=== PATIENT | male | born 1960 | race Caucasian/White ===

== ENCOUNTER 2020-02-10 06:35 | Outpatient (CLI) | payer OTHER, SELFPAY ==
--- NOTE | 2020-02-10 07:25 | ECG_ITS ---
[facility] Test Date: 2020-02-10 Pat Name: Stef Vizcarra Department: Room: Gender: Male Tax Compliance Manager: Natasha Terrazas : 1960 Requested By: Adolfo Topete Order Number: [id number] Aarti MD: Adolfo Topete M.D. Interpretive Statements NAME OF STUDY: EXERCISE SESTAMIBI STRESS TEST INDICATION: [Bradycardia, ] Exercise data: The patient was exercised by Jarek protocol. Baseline heart rate was 68 bpm. Baseline blood pressure was 129/79 mmHg. Maximum predicted heart rate was 163 bpm. Maximum heart rate achieved was 139 bpm which was 85% of maximum predicted heart rate. Maximum blood pressure was 208/53 mmHg. Total exercise time was 10 minutes 30 seconds. Maximum METS achieved was 12.3. Maximum VO2 was 43.1. The reason for ending the test was completion of protocol and achieving target heart rate. Patient had intraprocedural shortness of breath that resolved by discharge. Electrocardiogram: Baseline: Showed normal sinus rhythm, normal axis, no significant ST-T wave changes. Exercise: At peak exercise, no significant ST-T wave changes were noted, no suggestion of ischemia. Recovery: During recovery. Heart rate dropped appropriately. No significant ST-T wave changes in recovery suggestive of ischemia noted. Conclusion: 1. Exercise capacity is excellent 2. Heart rate response was appropriate. 3. Blood pressure response was appropriate. 4. Symptoms not suggestive of ischemia. 5. Electrocardiogram portion of stress test was not suggestive of ischemia. 6. Nuclear scan will be documented separately. Electronically Signed On 02-20-2020 10:01:28 MATCHER OPERATOR by Adolfo Topete M.D. [id number]
--- NOTE | 2020-02-10 07:26 | NMCV_ITS ---
NM ryan perf SPECT r/s* [id number] Stef Vizcarra Age: 59 Gender: M : 1960 Exam Date: 02/10/2020 08:06 Ordering Phys: Adolfo Topete M.D ([email or web address]) Technologist: TRICE Covarrubias Exam Location: [facility] Indications: CHEST PAIN STRESS TEST Please see separate stress test report in [facility] for full findings IMAGE PROTOCOL Rest/Stress 1 Exercise Day Radiopharmaceutical Dose (mCi) Administration Site Administered by Rest: Tc-99m 10.8 IV TRICE Cohen Sestamibi Stress:Tc-99m 32.8 IV TRICE Cohen Sestamibi Rest: 10-Feb-2020 60 Discovery 630 Stress: 10-Feb-2020 15 Discovery 630 Radiopharmaceutical was injected at 85 % maximum heart rate. Images obtained in supine and prone position. SPECT RESULTS Technical Quality: Excellent Raw Data Analysis: Normal Image Corrections: No attenuation or motion correction applied Summed Stress Score: 2 Summed Rest Score: 1 Summed Difference Score: 2 PERFUSION FINDINGS There is a small area of decreased tracer intake in anterior wall. There is no significant reversibility. Small area of partially reversible perfusion defect is noted in apical lateral wall. FUNCTIONAL RESULTS (calculated via Gated SPECT) Stress Image LV EF (%): 62 Stress EDV (mL):153 TID: 0.82 Stress ESV (mL):58 FUNCTIONAL FINDINGS: There is normal left ventricular systolic function. IMPRESSIONS 1. There is a small area of mostly fixed anterior wall defect. This could represent artifact or prior infarct. 2. There is a small area of partially reversible apical lateral wall defect. This could represent ischemia. Clinical correlation is needed. 3. Normal LV systolic function with EF of 62%. Adolfo Topete MD (Electronically Signed) Final Date: 13 February 2020 19:16 S
[2020-02-10 07:28] VITALS: BMI 35.2
[2020-02-10 09:25] VITALS: BP 167/67; PULSE 80
== END 2020-02-10 06:36 | disposition home or self-care (01) ==
LOC: RAD 06:37 → CDL 08:58
PROVIDERS: Visit Provider Internal Medicine
DX: R07.9 Chest pain, unspecified (principal)
CPT/HCPCS: 78452; 93017; A9500

== ENCOUNTER → 2020-02-27 14:08 | Outpatient (BNVA) | payer OTHER, SELFPAY | PROVIDERS: Visit Provider Internal Medicine | DX: Z11.59 Encounter for screening for other viral diseases (principal); R07.9 Chest pain, unspecified | CPT/HCPCS: 36415; 80048; 85025; 85610; 87635 ==

== ENCOUNTER → 2020-03-14 09:36 | Outpatient (BNVA) | payer OTHER, SELFPAY | PROVIDERS: Visit Provider Internal Medicine | DX: R07.9 Chest pain, unspecified (principal) | CPT/HCPCS: 87635 ==

== ENCOUNTER → 2020-03-20 09:05 | Outpatient (BNVA) | payer OTHER, SELFPAY | PROVIDERS: Visit Provider Internal Medicine | DX: Z20.828 Contact with and (suspected) exposure to other viral communicable diseases (principal); Z01.812 Encounter for preprocedural laboratory examination | CPT/HCPCS: 87635 ==

== ENCOUNTER 2020-03-23 10:14 | Observation (INO) | payer OTHER, SELFPAY ==
[2020-03-23] VITALS (36 sets, daily range): BP systolic 102–174; BP diastolic 58–109; PULSE 45–66; RESP 10–24; TEMP 36.2–37.2; O2SAT 96–98; BMI 35.2
[2020-03-23 08:23] LABS: SARS Covid-2 Antigen Negative (Negative)
--- NOTE | 2020-03-23 08:27 | XACV_ITS ---
Ht: 183 cm Wt: 124 kg BSA: 2.56 m2 Gender: Male : 1960 Any Known Allergies: Other Exam Priority: Routine Procedure(s): Procedure Description: Diagnostic procedure Procedure Description: PCI procedure Procedure Description: Drug Eluting Coronary Stent Procedure Description: PTCA Procedure Description: Coronary Angiography Procedure Description: Pressure Wire Diagnostic Cath Status: Elective Diagnostic Findings * LM has luminal irregularities. No significant stenosis.. * CX arises from left main artery. It gives rise to a large OM branch. Proximal left circumflex has 10 to 20% stenosis.. * RCA has no significant stenosis. * LAD arises from left main artery. It gives rise to a medium sized diagonal branch. At bifurcation of LAD and diagonal there is 60 to 70% stenosis in mid LAD. * M * id Left Anterior Descending Coronary Artery: Moderate 70% stenosis, CAROLA: 3 flow. FFR was performed for mid LAD which was significant at 0.79.. * Coronary angiography shows right dominance. PCI Status: Elective PCI Indication: Other Interventional Findings * After diagnostic angiography, we decided to perform FFR of mid LAD. IV heparin was administered to maintain ACT above 250 seconds. We engaged left main artery using XB 3.0 guide catheter. After zeroing and equalizing, pressure wire was used to cross the mid LAD stenosis and was placed in distal LAD. IV adenosine was used to induce maximal hyperemia. FFR value of 0.79 was obtained. At this time we decided to proceed with percutaneous coronary intervention. Over the same pressure wire, we put a 2.5 x 12 mm resolute [place] drug-eluting stent in mid LAD. This was postdilated using a 3.0 x 6 mm NC balloon. At this time guidewire was removed and final angiogram was performed. This showed excellent stent expansion, flow and no residual stenosis. The medium sized sidebranch that is the diagonal artery, had ostial pinching however there was brisk CAROLA-3 flow and no compromise of the vessel. Guide catheter was removed. Patient left the Early Childhood Educator Aide in stable condition.. * Mid Left Anterior Descending Coronary Artery: 70% stenosis treated with MDT R ASHOK 2.5X12 HUMA and MDT NC EUPHORA RX [id number] BALLOON. 0% residual stenosis, CAROLA: 3 flow. Conclusions 1. Severe mid LAD stenosis confirmed by FFR value of 0.79.. 2. Mid Left Anterior Descending Coronary Artery was treated with Drug Eluting Stent and Balloon. Recommendations * Admit to CSU. * Aspirin and Plavix for at least 1 year. * High * intensity statin therapy. * Aggressive risk factor control with blood pressure and diabetes control. Interventional RX Recommendation: PCI w/o planned CABG Diagnostic RX Recommendation: PCI w/o planned CABG Anticoagulation: Heparin Pressures Phase:Rest AO : 124 / 80 ( 99 ) @ 2:58:00 AM 122 / 113 ( 99 ) @ 2:58:00 AM 122 / 81 ( 100 ) @ 3:06:00 AM 112 / 63 ( 82 ) @ 3:39:00 AM 92 / 91 ( 75 ) @ 3:41:00 AM Clinical Evaluation EBL: 5mL-10mL Procedural Details Procedure Consent Obtained. Pre-Procedure Time Out. Identified patient by full name and date of as verbalized by the patient/guarantor. Does the consent match the physician's order: Yes. Accurate & Complete Informed Consent: Yes. Inpatient/Outpatient History & Physical on Chart: Yes. If H&P is completed, is and addenduem needed: N/A; If yes, is the addendum complete: N/A. Visualize and Verify Site with Patient/Guarantor: N/A. Relevant Radiology Images available: Yes. Pre-op teaching completed and patient verbalized understanding. The risks, benefits, and alternatives of sedation and/or procedure were discussed by physician. The patient agrees to continue. Procedure started. Correct patient, site and procedure confirmed by cath team. PERRLA. Strong, equal hand test developer bilaterally. Lungs clear x 5 lobes. IV Site on Arrival: 20 gauge in the left anticubital. IV Fluids: 0.9% NaCl at KVO. 0 mL infused prior to cardiac cath lab technologist. Oxygen started at 2liters/min via nasal canula. right groin was prepped with chloroprep then draped in the usual sterile fashion. right radial was prepped with chloroprep then draped in the usual sterile fashion. Physician notified. Baseline sample Acquired. HR: 52 BPM. Physician arrived. Equipment: 6F - Radial. Cardiac Cath Pack. ACAnesco Manifold Kit Model BT 2000. Heparinized Saline (2 units/mL), 1000 mL bag. Physician scrubbed in. Immediate Pre-Procedure Time Out. Correct Patient: Yes; Correct Procedure: Yes; Correct Site: Yes; Correct Patient Position: Yes; Correct Supplies: Yes; Dried Flammable Prep: Yes; Blood Products Available: No;. Lidocaine 1% infiltrated to the right radial. Arterial access obtained. A 5 afghan TIG catheter in over wire. Multiple views taken of left coronary artery. Patient's family updated. Catheter redirected to the RCA. Multiple views taken of right coronary artery. Catheter out. 6 afghan XB 3.5 guide catheter was inserted over the wire. Guide catheter out. 6 afghan XB 3 guide catheter was inserted over the wire. FFR guidewire was advanced through the guide catheter to lesion in the mid LAD. An FFR value of 0.80 was obtained for a lesion located at Mid LAD. Inflation Number : 1 A MDT R ASHOK 2.5X12 HUMA -Lot Number# [id number] exp 12-26-2021 was prepped and advanced across the Mid LAD. The stent was deployed at 14 RONALDO for 0:32 seconds. Stent balloon out over wire. Inflation number : 2 A MDT NC EUPHORA RX [id number] BALLOON was prepped and advanced across the Mid LAD , then inflated to 12 RONALDO for 0:38 seconds. Inflation number: 3 The MDT NC EUPHORA RX [id number] BALLOON was reinflated across the Mid LAD, to 12 RONALDO for 0:26 seconds. Inflation number: 4 The MDT NC EUPHORA RX [id number] BALLOON was reinflated across the Mid LAD, to 12 RONALDO for 0:09 seconds. Balloon out. Balloon out. Results checked. Wire out. Results checked. Guide catheter out. A TR Band was successful obtaining hemostatsis at the Right Radial artery insertion site. TR band placed. Hemostasis obtained. Post Procedure: Pulses reassessed and unchanged. PERRLA. Strong, equal hand test developer bilaterally. No VTE prophylaxis required. Medication's Wasted: Other = versed 1 mg. Medication's Wasted: Nitro = 49.4 mg. Medication's Wasted: Lidocaine 1% = 18 mL. Medication's Wasted: Heparin = 2000 units. Medication's Wasted: Other = adenosine 56 mg. Total IV fluids: 100 mL. Fluoro: 14:02. Contrast type used: Omnipaque 300 mgI/mL, 500 mL bottle. [id number]. PCI Indication: unstable angina. Post-op diagnosis: severe mid LAD stenosis. Complications: none. Estimated blood loss: 5mL-10mL. Procedure completed. Patient transferred by wheelchair to 1st floor. [facility] Clinical Fraility Score: 3: Managing Well. Early Childhood Educator Aide Indications: Worsening Angina. Chest Pain Symptom Assessment: Typical Angina Symptoms. Cardiovascular Instability: No. Vital chart was stopped. Access Site Site: Right Radial artery Sheath Size: 6 Fr Hemostasis Method: TR Band Hemostasis Success: Successful Procedure Medications Start: 8:38 AM Stop: 8:38 AM Medication: Aspirin Amount: 325 mg Route: P.O. Start: 8:39 AM Stop: 8:39 AM Medication: Benadryl Amount: 50 mg Route: I.V. Start: 8:42 AM Stop: 8:42 AM Medication: Versed Amount: 1 mg Route: I.V. Start: 8:42 AM Stop: 8:42 AM Medication: Fentanyl Amount: 50 mcg Route: I.V. Start: 8:50 AM Stop: 8:50 AM Medication: Nitrogylcerin Amount: 200 mcg Route: I.A. Start: 8:54 AM Stop: 8:54 AM Medication: Heparin Amount: 5000 units Route: I.V. Start: 9:02 AM Stop: 9:02 AM Medication: Nitrogylcerin Amount: 200 mcg Route: I.C. Start: 9:13 AM Stop: 9:13 AM Medication: Heparin Amount: 3000 units Route: I.V. Start: 9:14 AM Stop: 9:14 AM Medication: Versed Amount: 1 mg Route: I.V. Start: 9:44 AM Stop: 9:44 AM Medication: Plavix Amount: 600 mg Route: P.O. Start: 9:49 AM Stop: 9:49 AM Medication: Heparin Amount: 1000 units Route: I.V. I, the attending physician, have reviewed and verified all procedure medications. Yes, all medications given per verbal order History/Risk Factors Hypertension: Yes Dyslipidemia: Yes Tobacco Use: Current/Recent(w/in 1 year) Report Signatures Finalized by Adolfo Topete MD on 03/23/2020 12:13 PM
--- NOTE | 2020-03-23 08:32 | P.HP_ITS ---
Providers/Chief Complaint Admitting Physician: Adolfo Topete MD Chief Complaint: cardiac cath History of Present Illness 59-year-old man with past medical history of hypertension, hyperlipidemia, diabetes has been referred from [place] for evaluation of bradycardia and chest pain. Chest pain symptoms are typical. He gets exertional chest pain. It has been happening for the last 3 to 4 months now. Nuclear stress test was performed that showed mostly fixed defect of anterior wall and partially reversible defect of apical lateral wall. Given patient's persistent typical symptoms and abnormal stress test, plan is for coronary angiography with possible coronary intervention. Review of Systems Narrative: CONSTITUTIONAL: No fever chills weight loss or gain or night sweats. [] HEENT: Normocephalic, atraumatic.[] RESPIRATORY: No cough, sputum, hemoptysis or wheezing.[] CARDIOVASCULAR: No shortness of breath, chest pain, PND, orthopnea, lower extremity edema, presyncope or syncope. [] GI: no nausea vomiting diarrhea. [] SOLAR SALES REP: No numbness, tingling, weakness or loss of function in any part of the body. [] MUSCULOSKELETAL: No knee or joint pain or rashes. [] Medications/Allergies Home Medications Medication Instructions Recorded Confirmed Last Taken Type amlodipine 2.5 mg tablet 2.5 mg PO DAILY 01/24/20 03/23/20 03/21/20 08:00 History atorvastatin 80 mg tablet 80 mg PO DAILY 01/24/20 03/23/20 03/21/20 17:00 History cetirizine 10 mg capsule 10 mg PO DAILY 01/24/20 03/23/20 03/21/20 08:00 History cyanocobalamin (vitamin B-12) 1,000 mcg PO DAILY 01/24/20 03/23/20 03/22/20 08:00 History 1,000 mcg capsule lisinopril 20 1 tab PO DAILY 01/24/20 03/23/20 03/21/20 08:00 History mg-hydrochlorothiazide 12.5 mg tablet multivitamin 1 tab PO DAILY 01/24/20 03/23/20 03/21/20 08:00 History metformin 500 mg PO BID 03/23/20 03/23/20 03/21/20 17:00 History Allergies Allergy/AdvReac Type Severity Reaction Status Date / Time Penicillins Allergy Severe rash Verified 02/29/20 10:27 lorazepam [From Ativan] AdvReac luizuinatio Verified 02/29/20 10:27 ns PFSH Acute PFSH: Medical History Chest pain Diabetes Hyperlipidemia Hypertension Family History Father CAD (coronary artery disease) Stroke Hypertension Mother CAD (coronary artery disease) Hypertension Denies family history of Diabetes Social History Smoking and tobacco status: smoker, details unknown cigarettes Packs smoked per day: 0.5 Years cigarettes smoked: 0.3 Second hand smoke exposure: No Alcohol intake: former Year of sobriety/quit date alcohol: 2007 Household members: spouse Housing: House service: Yes Vitals/I&O/Wt Last Vital Signs Temp 97.2 F L 03/23/20 07:14 Pulse 59 L 03/23/20 07:14 Resp 16 03/23/20 07:14 BP 147/82 03/23/20 07:14 Pulse Ox 98 03/23/20 07:14 Weight last 48 hrs Weight 260 lb Physical Exam Narrative: EXAM NARRATIVE: GENERAL: Patient is alert, awake and oriented x3. [] NECK: No jugular vein distension. [] HEENT: No cyanosis. No icterus. No pallor. [] HEART: Regular S1 and S2. No murmur, rub or gallop. [] LUNGS: Clear to auscultate bilaterally. [] ABDOMEN: Soft, nontender and nondistended. Positive bowel sounds. No guarding, rebound or tenderness. [] CENTRAL NERVOUS SYSTEM: Grossly nonfocal. [] EXTREMITIES: Lower extremities with no edema bilaterally. Pulses palpable in the lower extremities, both dorsalis pedis and posterior tibial. [] A&P Assessment and plan (1) Chest pain: Status: Acute (2) Hypertension: Status: Acute (3) Hyperlipidemia: Status: Acute (4) Diabetes: Status: Acute Patient has been having typical chest pain symptoms. Given his symptoms, significant coronary artery disease risk factors and abnormal stress test we are going to perform left heart cath with possible percutaneous coronary intervention. Risks and benefits of the procedure have been explained to the patient. Risks including bleeding, infection, kidney function worsening, abnormal heart rhythm, heart attack, stroke or have been described. Patient understands the risks and benefits and wants to proceed with the procedure. Attestations Medical Necessity Statement*: Care not expected to cross 2 midnights. Coding Level of Care Code Acute Automotive Tire Testing Supervisor for [facility] Fwd Diagnoses Chest pain R07.9 Hypertension I10 Hyperlipidemia E78.5 Diabetes E11.9
[2020-03-23 11:24] LABS: Glucose Point of Care 87 mg/dL (70-110)
[2020-03-23] MEDS: acetaminophen 325 mg Tablet 650 MG PO (17:10)
[2020-03-23] MEDS: sodium chloride 0.9% 1,000 ML 100 ML IV (19:32)
[2020-03-24] VITALS (8 sets, daily range): BP systolic 120–142; BP diastolic 69–87; PULSE 54–65; RESP 14–25; TEMP 36.4–36.8; O2SAT 96–98
--- NOTE | 2020-03-24 03:47 | PC.NURSE ---
Patient up to bathroom. Had an uneventful night. Dressing to right wrist remains c,d,i. No s/s of bleeding or hematoma formation observed. Patient requested to have IV fluids disconnected. Patient stated, I am going home today. Patient denies pain to LHC access site. Denies other needs or discomforts. No distress observed.
[2020-03-24] MEDS: aspirin 81 mg EC Tablet PO (08:15)
[2020-03-24] MEDS: clopidogrel 75 mg Tablet PO (08:15)
[2020-03-24] MEDS: lisinopril 20 mg Tablet PO (08:15)
[2020-03-24] MEDS: cyanocobalamin 1,000 mcg Tablet 1000 MCG PO (08:15)
[2020-03-24] MEDS: atorvastatin 40 mg Tablet 80 MG PO (08:16)
[2020-03-24] MEDS: cetirizine 10 mg Tablet PO (08:17)
[2020-03-24] MEDS: amlodipine 5 mg Tablet 2.5 MG PO (08:17)
[2020-03-24] MEDS: acetaminophen 325 mg Tablet 650 MG PO (11:17)
[2020-03-24] MEDS: pantoprazole DR 40 mg Tablet PO (11:45)
[2020-03-24] MEDS: ondansetron 2 mg/ML SDV 2 mL 4 MG IVP (11:45)
--- NOTE | 2020-03-24 11:49 | PM.PN ---
Subjective Subjective: Interval history: Patient is complaining of nausea and chest pressure along with headache. His vitals are stable he appeared to be little bit nervous. Vitals/I&O/Wt Last Vital Signs Temp 97.9 F 03/24/20 08:26 Pulse 63 03/24/20 11:24 Resp 14 03/24/20 11:24 BP 125/74 03/24/20 11:24 Pulse Ox 96 03/24/20 08:26 03/23/20 03/24/20 03/24/20 22:59 06:59 14:59 Intake Total 240 / 480 825 / 1305 222 / 222 Balance 240 / 480 825 / 1305 222 / 222 Weight last 48 hrs Weight 260 lb Physical Exam Narrative: EXAM NARRATIVE: GENERAL: Patient is alert, awake and oriented x3. NECK: No jugular vein distension. HEENT: No cyanosis. No icterus. No pallor. HEART: Regular S1 and S2. No murmur, rub or gallop. LUNGS: Clear to auscultate bilaterally. ABDOMEN: Soft, nontender and nondistended. Positive bowel sounds. No guarding, rebound or tenderness. CENTRAL NERVOUS SYSTEM: Grossly nonfocal. EXTREMITIES: Lower extremities without edema bilaterally. Pulses palpable in the lower extremities, both dorsalis pedis and posterior tibial. A&P Assessment and plan (1) Chest pain: Status: Acute (2) Hypertension: Status: Acute (3) Hyperlipidemia: Status: Acute (4) Diabetes: Status: Acute For worsening of angina patient does not left heart cath noted to have mid significant LAD disease by FFR treated with single drug-eluting stent. No overnight complication except this morning patient started feeling chest pressure and nausea. He is also anxious. I will watch him for few more hours and perhaps may be 1 more day post PCI. I will add Protonix to the regimen. Continue aspirin statin Plavix lisinopril. Attestations Medical Necessity Statement*: Patient require continuation hospitalization for chest pressure nausea post PCI. Coding Level of Care Code Established Pt Acute Digital Experience Manager for [facility] Fwd Patient Type Established History Expanded Problem Focused Exam Expanded Problem Focused Medical Decision Making Moderate Complexity Diagnoses Chest pain R07.9 Hypertension I10 Hyperlipidemia E78.5 Diabetes E11.9
[2020-03-24 11:52] LABS: Glucose Point of Care 88 mg/dL (70-110)
--- NOTE | 2020-03-24 13:32 | PC.NURSE ---
Pt ambulating down hallways. Pt has been up and walking around the hallways. Pt denies any chest pain or chest discomfort. Pt stated his nausea is gone after i administer zofran as ordered. He denies any more headache. He said, I am ready to go home.
--- NOTE | 2020-03-24 13:35 | ECG_ITS ---
[facility] Test Date: 2020-03-24 Pat Name: Stef Vizcarra Department: Room: 112 Gender: Male Rail Technician: : 1960 Requested By: Valeri Milan Order Number: [id number] Reading MD: VALERI MILAN Measurements Intervals [place] Rate: 64 P: 7 NE: 186 QRS: 32 QRSD: 98 T: 18 QT: 386 QTc: 399 Interpretive Statements SINUS RHYTHM No previous ECG available for comparison Electronically Signed On 03-24-2020 17:27:54 NAIL TECH by VALERI MILAN [id number]
--- NOTE | 2020-03-24 14:32 | PC.NURSE ---
Notified Dr Milan Talked to Dr. Milan via phone regarding pt's EKG and pt denies any more chest pain or discomfort after ambulation. VS WNL.
--- NOTE | 2020-03-24 14:33 | PC.NURSE ---
Pt preferred pharmacy for now is [facility] Noted pt is a [facility]. He said it takes about 10 days before his Rx are mailed to him. [facility]
--- NOTE | 2020-03-24 14:48 | PM.DCS ---
Discharge Providers Date of Admission: 03/23/20 10:14 Date of Discharge: March 24, 2020 Attending Provider at Admission: Adolfo Topete M.D Attending Provider at Discharge: Adolfo Topete M.D Diagnoses at Discharge Discharge Diagnosis (1) Chest pain: Status: Acute (2) Hypertension: Status: Acute (3) Hyperlipidemia: Status: Acute (4) Diabetes: Status: Acute Reason for Visit Reason for Visit: cardiac cath Hospital Course Hospital Course 59-year-old male past medical history significant for diabetes mellitus hypertension hyperlipidemia underwent left heart cath for worsening of chest pain angina by Dr. Rodriguez. He was noted to have mid LAD stenosis, FFR was significant for which drug-eluting stent postdilated with noncompliant balloon was placed. There was no overnight event however this morning patient was feeling some chest pressure with nausea Zofran was given medicine was optimized he is walking around without any difficulty he feels much better twelve-lead EKG did not show any significant ischemia. Patient is being discharged home with advised to continue clopidogrel aspirin statin on daily basis. Patient has been advised in case of chest pain not relieved with 3 nitroglycerin he should go to ER. He is going to follow-up with Dr. Rodriguez and Tanisha Rogers in cardiology clinic. Physical Exam Narrative: EXAM NARRATIVE: GENERAL: Patient is alert, awake and oriented x3. NECK: No jugular vein distension. HEENT: No cyanosis. No icterus. No pallor. HEART: Regular S1 and S2. No murmur, rub or gallop. LUNGS: Clear to auscultate bilaterally. ABDOMEN: Soft, nontender and nondistended. Positive bowel sounds. No guarding, rebound or tenderness. CENTRAL NERVOUS SYSTEM: Grossly nonfocal. EXTREMITIES: Lower extremities without edema bilaterally. Pulses palpable in the lower extremities, both dorsalis pedis and posterior tibial. 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 Routin e Exams 03/23/20 08:27 Completed Labs from last 24 hours 03/24/20 11:41 POC Glucose 88 Vitals: Last Vital Signs Temp 97.9 F 03/24/20 08:26 Pulse 63 03/24/20 11:24 Resp 14 03/24/20 11:24 BP 125/74 03/24/20 11:24 Pulse Ox 96 03/24/20 08:26 Discharge Plan Discharge Patient Disposition: Home Condition: Stable Prescriptions: New pantoprazole 40 mg Tablet,Delayed Release (Dr/Ec) 40 mg PO DAILY Qty: 30 RF: 1 aspirin 81 mg Tablet,Delayed Release (Dr/Ec) 81 mg PO DAILY Qty: 90 RF: 4 clopidogrel 75 mg Tablet 75 mg PO DAILY Qty: 90 RF: 4 Continued lisinopril-hydrochlorothiazide 20-12.5 mg tablet 1 tab PO DAILY RF: 0 cetirizine 10 mg capsule 10 mg PO DAILY RF: 0 cyanocobalamin (vitamin B-12) 1,000 mcg capsule 1,000 mcg PO DAILY RF: 0 atorvastatin 80 mg tablet 80 mg PO DAILY RF: 0 amlodipine 2.5 mg tablet 2.5 mg PO DAILY RF: 0 multivitamin [Multiple Vitamins] Tablet 1 tab PO DAILY RF: 0 metformin 500 mg Tablet 500 mg PO BID RF: 0 Discharge Orders: Discharge Order (Routine); Ordered 03/24/20 Ordered By: Valeri Milan Discharge Diet: Diabetic Patient Instructions: Left Heart Catheterization (DC), Coronary Angioplasty (DC), Post Angiogram Home Care Instructions Activity Restrictions/Additional Instructions: Follow-up with Dr. Michael lovelace in 1 month. Tanisha Rogers follow-up 7 days Discharge Attestations Time Spent in Discharge Care*: greater than 30 min Specific Discharge Activities: educating patient Quality Metrics Clinical Quality Measures During this hospital stay, did patient experience: None Coding Level of Care Code New Pt Acute Band Saw Runner for [facility] Fwd Patient Type New History Detailed Exam Detailed Medical Decision Making Moderate Complexity Diagnoses Chest pain R07.9 Hypertension I10 Hyperlipidemia E78.5 Diabetes E11.9
--- NOTE | 2020-03-24 15:01 | PC.CHAP ---
Pastoral Care Encounter/Spiritual Assessment Type of Contact [] Declined business case analyst visit [] Patient/Family/Request visit [] Outpatient visit [] Follow-up visit [] Physician referral [] Code/Alert [x] Routine visit [] Staff referral [] Actively dying [] Patient sleeping [] Family support [] [] Out of room [] Palliative care [] [] Receiving care in room [] Pre-surgical visit [] Trauma [] Long length of stay [] ICU visit [] Other: Relational/Emotional Strength [] Patient feels connected with others/family/visitors/staff [] Distress [] Loneliness/isolation [] Abandonment Spirituality of Patient [] Person of Kika [] Attends Baptism of their Kika [] Believes in Prayer [] Reads Bible or Orthodoxy materials [] There are Spiritual issues to be addressed [employer] Chauf[employer]ur Interventions [] Prayer [] Active listening [] Non-anxious presence [] Spiritual/emotional support [] Crisis/trauma care [] Spiritual counseling [] Bereavement support [] Provided bereavement packet [] Provided Bible/devotional materials [] Provided toy/stuffed animal, coloring book to patient or family member [] Provided Communion [] Anointing/[facility] [] Salvation [] Completed spiritual assessment [] Other: Impact on Illness or Injury [] Angry [] Fearful [] Anxious [] Often cries [] Exhaustion [] Unable to work [] Unable to attend gnosticist [] Unable to walk/stand [] Unable to read [] Unable to drive [] Unable to eat/drink [] Unable to sleep [] Unable to be with family [] Patient intubated [] Other: Summary [employer] of a [employer] lutheran, had a long fruitful convo Time spent with patient
--- NOTE | 2020-03-24 16:50 | PC.NURSE ---
Discharge to home with Instructed pt on his follow-up appointments and [facility] Educated on new meds actions, dosing and timing. Instructed on post angiogram home care instructions. Instructed pt if any worsening of chest pain, chest discomfort or increasing sob to call 911 right away. Discharge packet provided to pt.
== END 2020-03-24 16:47 | disposition home or self-care (01) ==
LOC: CSU 10:15
PROVIDERS: Admitting Provider Internal Medicine; Visit Provider Internal Medicine
DX: I25.10 Atherosclerotic heart disease of native coronary artery without angina pectoris (principal); R07.9 Chest pain, unspecified; I10 Essential (primary) hypertension; E78.5 Hyperlipidemia, unspecified; E11.9 Type 2 diabetes mellitus without complications; Z79.84 Long term (current) use of oral hypoglycemic drugs; Z82.49 Family history of ischemic heart disease and other diseases of the circulatory system; Z83.3 Family history of diabetes mellitus; F17.210 Nicotine dependence, cigarettes, uncomplicated
CPT/HCPCS: 12345; 36415; 36416; 82962; 87426; 93005; 93454; 93571; 96360; 96361; 96375; C1725; C1769; C1874; C1887; C1894; C9600; G0378; J0153; J1200; J1644; J2250; J2405; J3010; J3490; J7030; Q0163; Q9967

== ENCOUNTER → 2020-04-03 11:47 | Outpatient (BNVA) | payer OTHER, SELFPAY | PROVIDERS: Visit Provider Nurse Practitioner Family | DX: I10 Essential (primary) hypertension (principal); I25.10 Atherosclerotic heart disease of native coronary artery without angina pectoris; I25.119 Atherosclerotic heart disease of native coronary artery with unspecified angina pectoris | CPT/HCPCS: 80048 ==